=== PATIENT | male | born 1955 | race Caucasian/White ===

== ENCOUNTER 2016-10-02 16:08 | Emergency (ER) | payer MEDICARE, MEDICAID ==
[2016-10-02] MEDS ORDERED: DEXAMETHASONE 4 MG TABLET PO ONE (16:56)
[2016-10-02] MEDS ORDERED: IBUPROFEN 400 MG TABLET PO ONE (16:56)
[2016-10-02] MEDS ORDERED: IBUPROFEN 600 MG TABLET PO ONE (16:57)
--- NOTE | 2016-10-02 17:03 | ER PHYSICIAN DOCUMENTATION ---
Physician Documentation [facility] Name:Sonido Brooks Age:60 yrs Sex:Male :1955 Arrival Date:10/02/2016 Time:16:08 Bed4 Private MD: Randy Rowland Disposition: 10/02/16 16:53 Discharged to Home/Self Care. Impression: Viral Upper Respiratory Infection (URI), Laryngitis, w/o Obstruction. - Condition is Good. - Discharge Instructions: VIRAL URI Adult - URI, Viral, No Abx (Adult), Disease, Laryngeal - LARYNGITIS. - Medical Reconciliation form form. - Follow up: Private Physician; When: As needed; Reason: Continuance of care. - Problem is new. - Symptoms have improved. HPI: 10/02 16:31 This 60 yrs old Male presents to ER via Private Vehicle with complaints of jm Cough. 16:31 The patient or guardian reports cough. Onset: The symptom(s)/episode began/occurred jm yesterday, and became worse today. Severity of symptoms: in the emergency department the symptoms are unchanged. Associated signs and symptoms: Pertinent positives: sore throat. The patient has not experienced similar symptoms in the past. Historical: - Allergies: No known drug Allergies; - Home Meds: 1. Lamictal Oral 2. suboxone - PMHx: BACK PAIN; DEPRESSION; - PSHx: back surgery; APPENDECTOMY; - Tetanus: < 10 years. - Ebola Screening: : Patient negative for fever greater than or equal to 101.5 degrees Fahrenheit, and additional compatible Ebola Virus Disease symptoms. Patient denies exposure to infectious person. Patient denies travel to an Ebola-affected area in the 21 days before illness onset. No symptoms or risks identified at this time. . - Immunization history: Flu Vaccine >1 year. - Social history: Smoking status: Patient states was never smoker of tobacco. ROS: 16:33 Constitutional: Positive for body aches, chills, fatigue, malaise, poor PO intake, jm Negative for fever. 16:33 ENT: Positive for sinus pain, Negative for sinus congestion. 16:33 Cardiovascular: Positive for chest pain, with cough. 16:33 Respiratory: Positive for cough. Exam: 16:40 ENT: Mouth: is normal, Posterior pharynx: erythema, that is moderate. jm 16:40 Neck: ROM/movement: is normal, Lymph nodes: no appreciated lymphadenopathy. 16:40 Respiratory: Respirations: normal, Breath sounds: are normal. Vital Signs: 16:12 BP 135 / 77; Pulse 67; Resp 16; Temp 98.7; Pulse Ox 97% ; Weight 86.18 kg; Height 5 ft. jt 9 in. (175.26 cm); Pain 6/10; 16:12 Body Mass Index 28.06 (86.18 kg, 175.26 cm) jt MDM: 16:11 Patient medically screened. 16:40 Differential Diagnosis: Influenza Upper Respiratory Infection Pharyngitis. Data jm reviewed: vital signs, nurses notes, lab test result(s), and as a result, I will discharge patient. Counseling: I had a detailed discussion with the patient and/or guardian regarding: the historical points, exam findings, and any diagnostic results supporting the discharge/admit diagnosis, lab results, the need for outpatient follow up, with the patient's primary care provider. Medication response: The patient's symptoms have improved. 0312 16:36 Order name: INFLUENZA A/B; Complete Time: 16:41 EDMS Dispensed Medications: 16:54 Drug: Dexamethasone 8 mg; Route: PO; tg 16:56 Follow up: Response: Medication administered at discharge. tg 16:55 Drug: Ibuprofen 600 mg; Route: PO; tg 16:56 Follow up: Response: Medication administered at discharge. tg Signatures: Hayden Martinez RN RN tg Meyer, John, MD MD jm
--- NOTE | 2016-10-02 17:03 | ER NURSING DOCUMENTATION ---
Nurse's Notes [facility] Name:Sonido Brooks Age:60 yrs Sex:Male :1955 Arrival Date:10/02/2016 Time:16:08 Bed4 Private MD: Diagnosis:Viral Upper Respiratory Infection (URI);Laryngitis, w/o Obstruction Presentation: 10/02 16:22 Presenting complaint: Patient states: Dry, irritated throat. Mild cough. Muscle aches. tg Transition of care: patient was not received from another setting of care. Resp Distress? No respiratory distress is noted at this time. 16:22 Acuity: ANNALISA 3 tg 16:22 Method Of Arrival: Private Vehicle tg Triage Assessment: 16:24 General: Appears in no apparent distress, Behavior is cooperative. Pain: Complains of tg pain in throat, general muscle aches. Neuro: Level of Consciousness is awake, alert. Respiratory: Respiratory effort is even, unlabored, Breath sounds are clear bilaterally. Derm: Skin is pink, warm & dry. Historical: - Allergies: No known drug Allergies; - Home Meds: 1. Lamictal Oral 2. suboxone - PMHx: BACK PAIN; DEPRESSION; - PSHx: back surgery; APPENDECTOMY; - Tetanus: < 10 years. - Ebola Screening: : Patient negative for fever greater than or equal to 101.5 degrees Fahrenheit, and additional compatible Ebola Virus Disease symptoms. Patient denies exposure to infectious person. Patient denies travel to an Ebola-affected area in the 21 days before illness onset. No symptoms or risks identified at this time. . - Immunization history: Flu Vaccine >1 year. - Social history: Smoking status: Patient states was never smoker of tobacco. Screenin:26 Infectious Disease Risk Unable to Obtain. Abuse screen: Denies threats or abuse. Denies tg injuries from another. Nutritional screening: No deficits noted. Vital Signs: 16:12 BP 135 / 77; Pulse 67; Resp 16; Temp 98.7; Pulse Ox 97% ; Weight 86.18 kg; Height 5 ft. jt 9 in. (175.26 cm); Pain 6/10; 16:12 Body Mass Index 28.06 (86.18 kg, 175.26 cm) jt ED Course: 16:09 Patient arrived in ED. jt 16:11 Randy Jo MD is Attending Physician. [email or web address] 16:22 Hayden Martinez, RN is Primary Nurse. tg 16:23 Triage completed. tg 16:25 Arm band placed on. tg 16:26 Valuables Remains with patient. tg Administered Medications: 16:54 Drug: Dexamethasone 8 mg; Route: PO; tg 16:56 Follow up: Response: Medication administered at discharge. tg 16:55 Drug: Ibuprofen 600 mg; Route: PO; tg 16:56 Follow up: Response: Medication administered at discharge. tg Outcome: 16:53 Discharge ordered by . 17:01 Discharged to home ambulatory, with family. tg 17:01 Condition: stable 17:01 Discharge Assessment: Patient awake, alert and oriented x 3. No cognitive and/or functional deficits noted. Patient verbalized understanding of disposition instructions. 17:01 Instructed on discharge instructions, follow up and referral plans. 17:02 Patient left the ED. tg Signatures: Hayden Martinez RN RN Randy Lmeus MD MD jm Tennant, Joanne jt
== END 2016-10-02 17:03 | disposition home or self-care (01) ==
LOC: ER 16:08
DX: J06.9 Acute upper respiratory infection, unspecified (principal); J04.0 Acute laryngitis; Z79.899 Other long term (current) drug therapy
CPT/HCPCS: 87449; 99282; 99283